=== PATIENT | male | born 1965 | race African-American/Black ===

== ENCOUNTER 2018-11-26 11:20 | Emergency (ER) | payer SELFPAY ==
[2018-11-26 11:27] VITALS: BP 151/99
[2018-11-26] MEDS ORDERED: METHOCARBAMOL 500 MG TABLET PO ONE (12:06)
[2018-11-26] MEDS ORDERED: KETOROLAC TROMETHAMINE INJ/PF 30 MG/1 ML SDV IM ONE (12:06)
--- NOTE | 2018-11-26 12:14 | ER Document Report ---
HPI - HPI Time Seen by Provider: 11/26/18 11:44 Pain Level: 5 Context: Patient is a 53-year-old male who presents to the emergency department with a chief complaint of left scapula and left arm numbness and tingling. Patient states that this has been ongoing for over 6 months. Patient states he works in [employer] and does a lot of heavy repetitive lifting. Patient states that movement makes the left shoulder and scapula pain worse. Patient states that when he lifts his arm above his head it seems to improve the numbness and tingling as well as the pain. Patient states he is attempted to use Flexeril as well as Tylenol and ibuprofen with minimal relief. Patient states he has continued to work in [employer] daily. Patient states he does have a history of chronic low back pain in which she sees [facility] surgery and receives injections. Patient denies neck or upper back surgery in the past. Patient denies a specific injury or fall. - CONSTITUTIONAL Constitutional: DENIES: Fever, Chills - EENT EENT: DENIES: Sore Throat, Ear Pain, Eye problems - NEURO Neurology: REPORTS: Headache. DENIES: Weakness, Vision blurred, Dizzinesss / Vertigo - CARDIOVASCULAR Cardiovascular: DENIES: Chest pain - RESPIRATORY Respiratory: DENIES: Trouble Breathing, Coughing - GASTROINTESTINAL Gastrointestinal: DENIES: Abdominal Pain, Black / Bloody Stools - URINARY Urinary: DENIES: Dysuria, Urgency, Frequency - REPRODUCTIVE Reproductive: DENIES: : - MUSCULOSKELETAL Musculoskeletal: REPORTS: Extremity pain Past Medical History - General Information source: Patient - Social History Smoking Status: Unknown if Ever Smoked Chew tobacco use (# tins/day): No Frequency of alcohol use: 1- 2 PER DAY Drug Abuse: None Family History: None, Reviewed & Not Pertinent Patient has suicidal ideation: No Patient has homicidal ideation: No - Past Medical History Cardiac Medical History: Reports: Hx Hypertension Denies: Hx Congestive Heart Failure, Hx Heart Attack Pulmonary Medical History: Reports: None Denies: Hx Asthma, Hx Bronchitis, Hx COPD, Hx Pneumonia, Hx Tuberculosis EENT Medical History: Reports: None Neurological Medical History: Reports: None. Denies: Hx Seizures Endocrine Medical History: Reports: None Renal/ Medical History: Reports: None. Denies: Hx Benign Prostatic H yperplasia, Hx End Stage Renal Disease, Hx Kidney Stones, Hx Peritoneal Dialysis Malignancy Medical History: Reports None GI Medical History: Reports: None. Denies: Hx Cirrhosis, Hx Gastroesophageal Reflux Disease, Hx Ulcer Musculoskeletal Medical History: Reports None, Denies Hx Arthritis, Denies Hx Multiple Sclerosis Skin Medical History: Reports None Psychiatric Medical History: Reports: None Denies: Hx Bipolar Disorder, Hx Depression, Hx Schizophrenia Traumatic Medical History: Reports: None Infectious Medical History: Reports: None Surgical Hx: Negative Past Surgical History: Reports: Hx Inguinal Hernia - right - Immunizations Hx Diphtheria, Pertussis, Tetanus Vaccination: Yes - unk Vertical Provider Document - CONSTITUTIONAL Agree With Documented VS: Yes Exam Limitations: No Limitations General Appearance: No Apparent Distress Notes: GENERAL: Well-appearing, well-nourished and in no acute distress. HEAD: Atraumatic, normocephalic. EYES: Pupils equal round and reactive to light, extraocular movements intact, sclera anicteric, conjunctiva are normal. ENT: TMs normal, nares patent, oropharynx clear without exudates. Moist mucous membranes. NECK: Normal range of motion, supple without lymphadenopathy or JVD. LUNGS: Breath sounds clear to auscultation bilaterally and equal. No wheezes rales or rhonchi. HEART: Regular rate and rhythm without murmurs, rubs or gallops. ABDOMEN: Soft, nontender, normoactive bowel sounds. No guarding, no rebound. No masses appreciated. BACK: No cervical, thoracic, lumbar midline tenderness. No saddle anesthesia, normal distal neurovascular exam. GENITOURINARY: Deferred. EXTREMITIES: PROM performed - pain with palpation over the infraspinatus muscle. NEUROLOGICAL: Cranial nerves II through XII grossly intact. Normal speech, normal gait. PSYCH: Normal mood, normal affect. SKIN: Warm, Dry, normal turgor, no rashes or lesions noted. - INFECTION CONTROL TRAVEL OUTSIDE OF THE [place] IN LAST 30 DAYS: No Course - Vital Signs Vital signs: Temp Pulse Resp BP Pulse Ox 97.5 F 79 18 151/99 H 98 11/26/18 11:26 11/26/18 11:26 11/26/18 11:26 11/26/18 11:26 11/26/18 11:26 Discharge - Discharge Clinical Impression: Shoulder pain Qualifiers: Chronicity: chronic Laterality: left Qualified Code(s): M25.512 - Pain in left shoulder Condition: Stable Disposition: HOME, SELF-CARE Additional Instructions: Today you were seen in the emergency department for left shoulder pain and left scapula pain that has been ongoing for 6 months. The x-ray of your shoulder and scapula were negative for fracture or dislocation. 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 This could be contributing to your discomfort. You need to follow-up with [facility] for surgery as they are your established orthopedic for management and further evaluation of this discomfort as it appears to be chronic. This could potentially be a rotator cuff injury or other injury that may need surgical repair to improve your symptoms. Please rest the shoulder as much as possible. Although it does hurt please move your joints frequently throughout the day to maintain adequate range of motion. You can use warm compresses to the site. Arthritis is typically treated with anti-inflammatory such as Aleve, ibuprofen or any other NSAID. Arthritis Your symptoms are due to arthritis. Arthritis is an inflammation of the joints. There are many types -- osteoarthritis (due to "wear and tear"), auto- immmune arthritis (such as rheumatoid, lupus, Olena's, and others), and crystal-induced arthritis (such as gout and pseudogout). The physician's examination, combined with laboratory tests, will determine the cause of your arthritis. All types of arthritis are treated with antiinflammatory medications. Other medication may be required for special types of arthritis, or if your problem does not respond to the antiinflammatory medicine. Local warmth may be helpful. Move the involved joints through the full range of motion daily. Mild exercise is usually still possible for most persons with arthritis (ask your physician). Swimming provides good exercise without damaging the joints. Contact the physician if you are worsening in any way. Shoulder Injury You have injured your shoulder. This usually results from stretching or tearing of the tendons during trauma. Time and protection are required in order to heal properly. Many injuries are quite disabling, and should be taken seriously. Initial treatment includes cold packs and a sling to rest the shoulder. The physician has assessed the seriousness of your injury, and has outlined a treatment plan. Understand that this treatment may change, depending on how you progress. If a re-examination was recommended, it is important that you follow up as instructed. Some shoulder injuries (such as partial tear of the rotator cuff) are only suspected after you've failed to improve. Call us if there's severe pain, numbness, or loss of function.
--- NOTE | 2018-11-26 13:01 | RADIOLOGY REPORT (SQ) ---
EXAM DESCRIPTION: SHOULDER LEFT 2 OR MORE VIEWS; SCAPULA LEFT COMPLETED DATE/TIME: 11/26/2018 12:49 pm REASON FOR STUDY: left shoulder pain COMPARISON: None. NUMBER OF VIEWS: Three views. TECHNIQUE: Internal rotation, external rotation, and Y view images acquired of the left shoulder and left scapula. LIMITATIONS: None. FINDINGS: MINERALIZATION: Normal. BONES: No acute fracture. No worrisome bone lesions. JOINTS: No dislocation. Moderate arthrosis of the left glenohumeral joint with inferior osteophytes. The acromioclavicular joint is preserved. VISUALIZED LUNGS AND RIBS: No pneumothorax. No rib fracture. SOFT TISSUES: No radiopaque foreign body. OTHER: No other significant finding. IMPRESSION: 1. No fracture or dislocation of the left shoulder. Moderate arthrosis of the left gle nohumeral joint. 2. No radiographic abnormality of the scapula. TECHNICAL DOCUMENTATION: JOB ID: [id number] [employer]- All Rights Reserved Reading location - IP/workstation name: [email or web address]
--- NOTE | 2018-11-26 13:01 | RADIOLOGY REPORT (SQ) ---
EXAM DESCRIPTION: SHOULDER LEFT 2 OR MORE VIEWS; SCAPULA LEFT COMPLETED DATE/TIME: 11/26/2018 12:49 pm REASON FOR STUDY: left shoulder pain COMPARISON: None. NUMBER OF VIEWS: Three views. TECHNIQUE: Internal rotation, external rotation, and Y view images acquired of the left shoulder and left scapula. LIMITATIONS: None. FINDINGS: MINERALIZATION: Normal. BONES: No acute fracture. No worrisome bone lesions. JOINTS: No dislocation. Moderate arthrosis of the left glenohumeral joint with inferior osteophytes. The acromioclavicular joint is preserved. VISUALIZED LUNGS AND RIBS: No pneumothorax. No rib fracture. SOFT TISSUES: No radiopaque foreign body. OTHER: No other significant finding. IMPRESSION: 1. No fracture or dislocation of the left shoulder. Moderate arthrosis of the left gle nohumeral joint. 2. No radiographic abnormality of the scapula. TECHNICAL DOCUMENTATION: JOB ID: [id number] [employer]- All Rights Reserved Reading location - IP/workstation name: [email or web address]
== END 2018-11-26 13:29 | disposition home or self-care (01) ==
LOC: ER 11:20
DX: M25.512 Pain in left shoulder (principal); R20.0 Anesthesia of skin; R51 Headache; X50.0XXA Overexertion from strenuous movement or load, initial encounter; I10 Essential (primary) hypertension
CPT/HCPCS: 99283; 96372; 73010; 73030; J1885

== ENCOUNTER 2019-08-17 08:02 | Emergency (ER) | payer OTHER ==
[2019-08-17] MEDS ORDERED: PREDNISONE 20 MG TABLET PO ONE (08:38)
[2019-08-17] MEDS ORDERED: KETOROLAC TROMETHAMINE 60 MG/2 ML SDV IM ONE (08:39)
--- NOTE | 2019-08-17 08:39 | ER Document Report ---
ED Extremity Problem, Upper - General Chief Complaint: Shoulder Injury Stated Complaint: LEFT SHOULDER/NECKPAIN Time Seen by Provider: 08/17/19 08:29 Notes: CHIEF COMPLAINT: Neck pain HPI: 54-year-old male who is left-hand dominant presenting for pain in the left neck and trapezius and shoulder region with radiation of numbness tingling down the left arm to the fingers. Patient works as a [employer]. 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 Patient states that he woke up today with pain through the left trapezius neck and shoulder region with some numbness tingling in the left arm. No specific or focal trauma. ROS: See HPI - all other systems were reviewed and are otherwise negative Constitutional: no fever Eyes: no drainage, no blurred vision ENT: no runny nose, no sore throat Cardiovascular: no chest pain Resp: no SOB, no cough Integumentary: no rash Allergy: no hives Musculoskeletal: no extremity pain or swelling, positive neck pain Neurological: + numbness/tingling, no weakness MEDICATIONS: I agree with the patient medications as charted by the RN. ALLERGIES: I agree with the allergies as charted by the RN. PAST MEDICAL HISTORY/PAST SURGICAL HISTORY: Reviewed and agree as charted by RN. SOCIAL HISTORY: Reviewed and agree as charted by RN. FAMILY HISTORY: No significant familial comorbid conditions directly related to patient complaint EXAM: Reviewed vital signs as charted by RN. CONSTITUTIONAL: Alert and oriented and responds appropriately to questions. Well-appearing; well-nourished HEAD: Normocephalic; atraumatic EYES: PERRL; Conjunctivae clear, sclerae non-icteric ENT: normal nose; no rhinorrhea; moist mucous membranes; pharynx without lesions noted, no uvula edema or deviation, no tonsillar hypertrophy, phonation normal NECK: Supple without meningismus; no cervical lymphadenopathy, no masses. There is tenderness to the left trapezius region and the left paraspinous cervical musculature. CARD: RRR; no murmurs, no clicks, no rubs, no gallops; symmetric distal pulses RESP: Normal chest excursion without splinting or tachypnea; breath sounds clear and equal bilaterally; no wheezes, no rhonchi, no rales, pulse oximetry ABD/GI: Normal bowel sounds; non-distended; soft, non-tender, no rebound, no guarding; no palpable organomegaly or masses. BACK: The back appears normal and is non-tender to palpation, there is no CVA tenderness EXT: Normal ROM in all joints; non-tender to palpation; no cyanosis, no effusions, no edema SKIN: Normal color for age and race; warm; dry; good turgor; no acute lesions noted NEURO: Moves all extremities equally; Motor and sensory function intact. Patient reports some decreased sensation to all fingers of the left hand to touch but strength is equal 5/5 bilateral upper extremities. PSYCH: The patient's mood and manner are appropriate. Grooming and personal hygiene are appropriate. MDM: 54-year-old male with left radiculopathy likely from overuse while he was shoveling. Will obtain x-ray to evaluate for Hans shovelers fracture although I have lower suspicion as he does not have significant bony tenderness. TRAVEL OUTSIDE OF THE [place] IN LAST 30 DAYS: No - Related Data Allergies/Adverse Reactions: No Known Allergies Allergy (Verified 08/17/19 08:09) Past Medical History - Social History Smoking Status: Never Smoker Chew tobacco use (# tins/day): No Frequency of alcohol use: Occasional Drug Abuse: None Family History: None, Reviewed & Not Pertinent Patient has suicidal ideation: No Patient has homicidal ideation: No - Past Medical History Cardiac Medical History: Reports: Hx Hypertension Denies: Hx Congestive Heart Failure, Hx Heart Attack Pulmonary Medical History: Denies: Hx Asthma, Hx Bronchitis, Hx COPD, Hx Pneumonia, Hx Tuberculosis Neurological Medical History: Denies: Hx Seizures, Hx Parkinson's Disease Renal/ Medical History: Denies: Hx Benign Prostatic Hyperplasia, Hx End Stage Renal Disease, Hx Kidney Stones, Hx Peritoneal Dialysis GI Medical History: Denies: Hx Cirrhosis, Hx Gastroesophageal Reflux Disease, Hx Ulcer Musculoskeletal Medical History: Denies Hx Arthritis, Denies Hx Multiple Scl erosis Psychiatric Medical History: Denies: Hx Bipolar Disorder, Hx Depression, Hx Schizophrenia Past Surgical History: Reports: Hx Inguinal Hernia - right - Immunizations Hx Diphtheria, Pertussis, Tetanus Vaccination: Yes - unk Physical Exam - Vital signs Vitals: Temp Pulse Resp BP Pulse Ox 97.5 F 72 20 158/108 H 98 08/17/19 08:05 08/17/19 08:05 08/17/19 08:05 08/17/19 08:05 08/17/19 08:05 Course - Re-evaluation Re-evalutation: 08/17/19 09:05 X-ray imaging shows evidence of arthritis. No other acute findings. Will discharge home steroids pain medication anti-inflammatories referral to orthopedics - Vital Signs Vital signs: Temp Pulse Resp BP Pulse Ox 97.5 F 72 20 158/108 H 98 08/17/19 08:05 08/17/19 08:05 08/17/19 08:05 08/17/19 08:05 08/17/19 08:05 Discharge - Discharge Clinical Impression: Cervical radiculopathy Condition: Stable Disposition: HOME, SELF-CARE Additional Instructions: Your x-ray today shows evidence of arthritis. You likely have a pinched nerve in the neck causing the symptoms in the left arm. Take the medications as prescribed no driving or heavy machinery use if utilizing muscle relaxers. Follow-up closely with orthopedics for reevaluation of symptoms Prescriptions: Prednisone [Deltasone 20 mg Tablet] 2 tab PO DAILY 5 Days #10 tablet Cyclobenzaprine HCl [Flexeril 10 mg Tablet] 10 mg PO TIDP PRN #15 tab PRN Reason: Diclofenac Sodium [Voltaren 50 Mg Tablet.] 50 mg PO BID #20 tablet. Forms: Return to Work Referrals: ABBEY OLVIERA DO [ACTIVE STAFF] - Follow up as needed
--- NOTE | 2019-08-17 09:04 | RADIOLOGY REPORT (SQ) ---
EXAM DESCRIPTION: CERV SP 4 OR 5 VIEWS IMAGES COMPLETED DATE/TIME: 08/17/2019 8:53 am REASON FOR STUDY: pain COMPARISON: None. NUMBER OF VIEWS: Five views including obliques. TECHNIQUE: AP, lateral, obliques and odontoid radiographic images acquired of the cervical spine. LIMITATIONS: None. FINDINGS: MINERALIZATION: Normal. ALIGNMENT: There is slight retrolisthesis of C2 on C3 and C3 on C4. There is reversal of the normal cervical doses centered at the C4-5 level. VERTEBRAE: Some loss of height at C5 and C6 most likely degenerative in nature. DISCS: Multilevel disc space narrowing with osteophytes. POSTERIOR ELEMENTS: Pedicles and facets are intact. No posterior arch defects. Facet arthropathy is present. FORAMINA: No high-grade foraminal stenosis is appreciated. Mild foraminal narrowing on the right at C3-4 and C5-C6. HARDWARE: None in the spine. PARASPINAL SOFT TISSUES: Normal. OTHER: No other significant finding. IMPRESSION: SPONDYLOSIS WITHOUT BONE LESION OR FRACTURE. TECHNICAL DOCUMENTATION: JOB ID: [id number] [employer]- All Rights Reserved Reading location - IP/workstation name: [email or web address]
[2019-08-17 09:43] VITALS: BP 148/116
== END 2019-08-17 09:47 | disposition home or self-care (01) ==
LOC: ER 08:02
DX: M47.812 Spondylosis without myelopathy or radiculopathy, cervical region (principal); M54.2 Cervicalgia; M79.18 Myalgia, other site; M25.512 Pain in left shoulder; R20.0 Anesthesia of skin; R20.2 Paresthesia of skin; I10 Essential (primary) hypertension
CPT/HCPCS: 99283; 96372; 72050; J1885; J7512